=== PATIENT | male | born 1940 | race Caucasian/White ===

== ENCOUNTER 2018-11-19 14:55 | Observation (INO) ==
[2018-11-19 15:31] LABS: Basophils % 0.4 %; Eosinophils % 0.4 %; Hematocrit 36.8 % (37.5-50.1); Immature Granulocytes % 0.3 % (0-4); Lymphocytes # 1.5 K/mcL (0.6-4.6); Mean Corpuscular HGB Conc 32.6 g/dL (31.6-35.5); Mean Corpuscular Hemoglobin 29.6 pg (28.0-33.3); Mean Corpuscular Volume 90.6 fL (83.0-100.0); Mean Platelet Volume 10.3 fL (9.4-12.4); Monocytes % 9.7 %; Neutrophils # 7.4 K/mcL (1.6-8.9); Platelet Count 291 K/mcL (140-400); Red Blood Count 4.06 M/mcL (4.19-5.50); Red Cell Distribution Width 13.3 % (11.5-14.5); Segmented Neutrophils % 74.2 %
[2018-11-19 15:40] LABS: Prothrombin Time 11.5 Seconds (9.4-12.1)
[2018-11-19 15:51] LABS: BUN/Creatinine Ratio 35 (6-26); Blood Urea Nitrogen 26 mg/dL (8-23); Calcium 11.8 mg/dL (8.6-10.3); Carbon Dioxide 26 mEq/L (23-29); Chloride 108 mEq/L (98-107); Creatine Kinase 64 Units/L (30-223); Glucose 101 mg/dL (70-105); Osmolality,Calculated 293 (280-300); Potassium 3.6 mEq/L (3.5-5.1); Sodium 139 mEq/L (136-145); eGFR For African Americans > 60 (> 60); eGFR For Non-African Americans > 60 (> 60)
[2018-11-19 16:04] LABS: Troponin I 0.04 ng/mL (< 0.04)
[2018-11-19] MEDS ORDERED: dexAMETHasone 4 MG TABLET PO STA (16:56)
[2018-11-19 16:58] LABS: Bilirubin,Urine Small (Negative); Blood,Urine Negative (Negative); Clarity,Urine Clear (Clear); Color,Urine Yellow (Yellow); Glucose,Urine (UA) Normal (Normal); Ketones,Urine Negative (Negative); Leukocyte Esterase,Urine Negative (Negative); Nitrite,Urine Negative (Negative); Protein,Urine Negative (Neg-Trace); Specific Gravity,Urine 1.024 (1.010-1.025); Urobilinogen,Urine Normal (Normal)
[2018-11-19] MEDS ORDERED: 0.9 % Sodium Chloride 1,000 ML IVC ONE (18:35)
[2018-11-19] MEDS ORDERED: Naloxone 0.4 MG/ML INJ IVP PRN (21:26)
[2018-11-19] MEDS ORDERED: D5% in Water 1,000 ML IVC PRN (21:47)
[2018-11-19] MEDS ORDERED: *HR* Dextrose 50 % in Water (Syg) 50 ML SYRINGE IVP PRN (21:47)
[2018-11-19] MEDS ORDERED: Dextrose Gel 15 GM/37.5 ML TUBE PO PRN ×2 (21:47)
[2018-11-20] MEDS: Insulin LISPRO 300 UNITS/3 ML VIAL SQ SCH ×5 (00:58→22:12)
[2018-11-20 05:34] LABS: Hematocrit 35.6 % (37.5-50.1); Hemoglobin 11.6 g/dL (12.9-16.9); Mean Corpuscular HGB Conc 32.6 g/dL (31.6-35.5); Mean Corpuscular Hemoglobin 29.7 pg (28.0-33.3); Mean Platelet Volume 10.4 fL (9.4-12.4); Platelet Count 270 K/mcL (140-400); Red Blood Count 3.91 M/mcL (4.19-5.50); Red Cell Distribution Width 13.2 % (11.5-14.5); White Blood Count 8.8 K/mcL (4.3-11.1)
[2018-11-20 05:58] LABS: Alanine Aminotransferase 14 Units/L (7-52); Albumin 3.3 g/dL (3.5-5.7); Albumin/Globulin Ratio 0.9 (1.1-2.2); Alkaline Phosphatase 125 Units/L (34-104); Aspartate Amino Transferase 15 Units/L (13-39); BUN/Creatinine Ratio 36 (6-26); Bilirubin,Total 0.4 mg/dL (0.3-1.0); Blood Urea Nitrogen 28 mg/dL (8-23); Calcium 11.5 mg/dL (8.6-10.3); Carbon Dioxide 26 mEq/L (23-29); Chloride 108 mEq/L (98-107); Globulin 3.5 g/dL (2.4-3.5); Glucose 142 mg/dL (70-105); Osmolality,Calculated 296 (280-300); Potassium 3.8 mEq/L (3.5-5.1); Sodium 139 mEq/L (136-145); Total Protein 6.8 g/dL (6.4-8.9); eGFR For African Americans > 60 (> 60); eGFR For Non-African Americans > 60 (> 60)
[2018-11-20] MEDS ORDERED: *HR* Heparin 5,000 UNIT/ML VIAL SQ SCH (06:00)
[2018-11-20 06:01] LABS: Troponin I 0.04 ng/mL (< 0.04)
[2018-11-20] MEDS: dexAMETHasone 4 MG TABLET PO SCH (10:13)
[2018-11-20] MEDS: Nicotine 7 MG PATCH.TD24 TD SCH (21:36)
[2018-11-20 23:12] LABS: BUN/Creatinine Ratio 40 (6-26); Blood Urea Nitrogen 31 mg/dL (8-23); Calcium 11.2 mg/dL (8.6-10.3); Carbon Dioxide 26 mEq/L (23-29); Chloride 108 mEq/L (98-107); Glucose 101 mg/dL (70-105); Osmolality,Calculated 293 (280-300); Sodium 138 mEq/L (136-145); eGFR For African Americans > 60 (> 60); eGFR For Non-African Americans > 60 (> 60)
[2018-11-21] MEDS: Insulin LISPRO 300 UNITS/3 ML VIAL SQ SCH ×4 (08:39→20:38)
[2018-11-21] MEDS: dexAMETHasone 4 MG TABLET PO SCH (09:33)
[2018-11-21] MEDS: Aspirin Enteric Coated 81 MG Tablet PO SCH (09:33)
[2018-11-21] MEDS: Nicotine 7 MG PATCH.TD24 TD SCH (09:33)
[2018-11-21] MEDS ORDERED: Isovue-370 500 ML BOTTLE IVP ONE (11:47)
[2018-11-21] MEDS ORDERED: Acetaminophen 325 MG TABLET PO PRN (16:00)
[2018-11-21 18:55] LABS: Thyroid Stimulating Hormone 1.19 mcIU/mL (0.340-5.600)
[2018-11-21 19:04] LABS: Folate 16.6 ng/mL (3.0-16.0)
[2018-11-21] MEDS ORDERED: Melatonin 3 MG TABLET PO PRN (22:44)
[2018-11-22] MEDS: Nicotine 7 MG PATCH.TD24 TD SCH (09:33)
[2018-11-22] MEDS: Aspirin Enteric Coated 81 MG Tablet PO SCH (09:35)
[2018-11-22] MEDS: dexAMETHasone 4 MG TABLET PO SCH (09:36)
[2018-11-22] MEDS: Insulin LISPRO 300 UNITS/3 ML VIAL SQ SCH ×3 (09:38→17:29)
[2018-11-22 15:35] VITALS: BP 115/67
[2018-11-22] MEDS ORDERED: FLU Vac QV 19-20 (6Month+)/PF 0.5 ML SYRINGE IM ONE (17:41)
== END 2018-11-22 18:09 | disposition home health service (06) ==
LOC: 3ANU 14:55 → EMEROOARM 14:55 → SUATTDRO 17:27 → 3ANU 18:50
PROVIDERS: ADMIT Internal Medicine; ATTEND Internal Medicine